=== PATIENT | female | born 1950 | race Two or more races ===

== ENCOUNTER → 2016-08-20 | Outpatient (CLI) | payer MEDICARE, OTHER ==
[~2016-08-20] MED LIST: CYANOCOBALAMIN (B-12) 1000 MCG/1 ML VIAL IM ONE; CYANOCOBALAMIN (B-12) 1000 MCG/1 ML VIAL ONE; KETOROLAC TROMETH 60MG/2ML VIAL IM ONE
[2016-08-20 12:06] VITALS: BP 144/79
[2016-08-20 16:29] LABS: Basophils # (auto) 0 uL; Basophils % (auto) 0.9 % (0.0-2.0); DEFINITIVE VIEW TRANSMISSION; Eosinophils # (auto) 0.2 uL; Eosinophils % (auto) 4.7 % (0.0-7.0); Hematocrit 39.3 % (36.0-46.0); Hemoglobin 12.1 g/dL (12.2-16.2); Lymphocytes # (auto) 1.4 uL; Lymphocytes % (auto) 27.3 % (10.0-50.0); Mean Corpuscular Hgb Conc. 30.8 g/dL (32.0-36.0); Mean Corpuscular Volume 84.3 fL (80.0-100.0); Mean Platelet Volume 7.1 fL (7.4-10.4); Monocytes # (auto) 0.3 uL; Monocytes % (auto) 5.2 % (0.0-12.0); Neutrophils # (auto) 3.2 uL; Neutrophils % (auto) 61.9 % (37.0-80.0); Platelet Count (auto) 429 10^3/uL (140-450); Red Cell Distribution Width 15.6 % (11.6-16.0); White Blood Cell 5.1 10^3/uL (4.4-10.8)
[2016-08-20 16:51] LABS: BUN/Creatinine Ratio 24.6; Calcium 9.5 mg/dL (8.5-10.1); Magnesium 2.1 mg/dL (1.6-2.6); Potassium 3.7 mmol/L (3.5-5.1)
[2016-08-20 17:03] VITALS: BP 123/60
== END | disposition home or self-care (01) ==
LOC: CHF HDHVI 11:27
PROVIDERS: ATTEND Internal Medicine Cardiovascular Disease
DX: I10 Essential (primary) hypertension (principal); E83.40 Disorders of magnesium metabolism, unspecified; D64.9 Anemia, unspecified; R70.0 Elevated erythrocyte sedimentation rate; E55.9 Vitamin D deficiency, unspecified
CPT/HCPCS: 36415; 80048; 82306; 83735; 85025; 85652; 93005; 96372; G0463; J1885

== ENCOUNTER → 2016-08-22 | Outpatient (CLI) | payer MEDICARE, OTHER ==
[2016-08-22 09:15] VITALS: BP 136/68
[2016-08-22 10:15] VITALS: BP 140/72
== END | disposition home or self-care (01) ==
LOC: Rad HDHVI 09:45
PROVIDERS: ATTEND Internal Medicine Cardiovascular Disease
DX: I70.0 Atherosclerosis of aorta (principal); I10 Essential (primary) hypertension; D64.9 Anemia, unspecified; E11.9 Type 2 diabetes mellitus without complications
CPT/HCPCS: 71020; G0463

== ENCOUNTER → 2016-08-31 | Outpatient (CLI) | payer MEDICARE, OTHER ==
[~2016-08-31] VITALS: Ht 160 cm; Wt 70.3 kg
== END | disposition home or self-care (01) ==
LOC: Rad HDHVI 09:21
PROVIDERS: ATTEND Internal Medicine Cardiovascular Disease
DX: I10 Essential (primary) hypertension (principal); E11.9 Type 2 diabetes mellitus without complications; E78.00 Pure hypercholesterolemia, unspecified
CPT/HCPCS: 78452; 93017; 96374; A9500

== ENCOUNTER → 2016-09-12 | Outpatient (CLI) | payer MEDICARE, OTHER | END | disposition home or self-care (01) | LOC: LAB 11:16 | PROVIDERS: ATTEND Internal Medicine Cardiovascular Disease | DX: R70.0 Elevated erythrocyte sedimentation rate (principal); R79.82 Elevated C-reactive protein (CRP) | CPT/HCPCS: 36415; 85652; 86141 ==

== ENCOUNTER → 2016-11-23 | Outpatient (CLI) | payer MEDICARE, OTHER ==
[2016-11-23 09:30] VITALS: BP 138/66
[2016-11-23 10:00] VITALS: BP 132/69
[2016-11-23 12:30] LABS: Basophils # (auto) 0 uL; Basophils % (auto) 0.8 % (0.0-2.0); Eosinophils # (auto) 0.1 uL; Eosinophils % (auto) 2.6 % (0.0-7.0); Hematocrit 39.5 % (36.0-46.0); Hemoglobin 12.9 g/dL (12.2-16.2); Lymphocytes # (auto) 1.5 uL; Mean Corpuscular Hemoglobin 27.5 pg (28.0-32.0); Mean Corpuscular Hgb Conc. 32.6 g/dL (32.0-36.0); Mean Corpuscular Volume 84.3 fL (80.0-100.0); Mean Platelet Volume 6.7 fL (7.4-10.4); Monocytes # (auto) 0.4 uL; Monocytes % (auto) 6.7 % (0.0-12.0); Neutrophils # (auto) 3.5 uL; Neutrophils % (auto) 62.9 % (37.0-80.0); Platelet Count (auto) 486 10^3/uL (140-450); Red Cell Distribution Width 16.4 % (11.6-16.0); White Blood Cell 5.6 10^3/uL (4.4-10.8)
[2016-11-23 12:36] LABS: INR 0.93 (0.9-1.15); Partial Thromboplastin Time 25.7 sec (22.64-33.71)
[2016-11-23 12:51] LABS: BUN/Creatinine Ratio 22.1; Calcium 10.4 mg/dL (8.5-10.1); Potassium 3.9 mmol/L (3.5-5.1)
== END | disposition home or self-care (01) ==
LOC: Rad HDHVI 09:16
PROVIDERS: ATTEND Internal Medicine Cardiovascular Disease
DX: I10 Essential (primary) hypertension (principal); D64.9 Anemia, unspecified; R79.1 Abnormal coagulation profile; Z01.812 Encounter for preprocedural laboratory examination
CPT/HCPCS: 36415; 71020; 80048; 85025; 85610; 85730; 93005; G0463

== ENCOUNTER → 2016-11-27 | Day surgery (SDC) | payer MEDICARE, OTHER ==
[~2016-11-27] VITALS: Ht 160 cm; Wt 70.8 kg
[~2016-11-27] MED LIST changes: -CYANOCOBALAMIN (B-12) 1000 MCG/1 ML VIAL IM ONE; -CYANOCOBALAMIN (B-12) 1000 MCG/1 ML VIAL ONE; +IODIXANOL 320MG/ML 100ML BTL IV ONE; -KETOROLAC TROMETH 60MG/2ML VIAL IM ONE; +LIDOCAINE 2%HCL (LOCAL ANESTH.) INJ 20ML MDV ONE; +MIDAZOLAM HCL 1MG/1ML-2 ML VIAL ONE; +fentaNYL CITRATE 100 MCG/2 ML VL ONE
== END | disposition home or self-care (01) ==
LOC: CATH 12:23
PROVIDERS: ATTEND Internal Medicine Cardiovascular Disease
DX: R07.9 Chest pain, unspecified (principal)
CPT/HCPCS: 93458; C1760; C1894; J1644; Q9967; 99152; J2250